=== PATIENT | male | born 1960 | race Caucasian/White ===

== ENCOUNTER 2019-01-04 08:32 | Day surgery (SDC) | payer BC, OTHER ==
[~2019-01-04] VITALS: Ht 177.8 cm; Wt 77.1 kg
[2019-01-04] MEDS ORDERED: MIDAZOLAM 1 MG/ML 2 ML INJ ONE (09:13)
[2019-01-04] MEDS ORDERED: LIDOCAINE 2% (SDV) 5 ML INJ ONE (09:13)
[2019-01-04] MEDS ORDERED: FENTAnyl 50 MCG/ML VIAL ONE (09:13)
[2019-01-04] MEDS ORDERED: PROPOFOL 20 ML ONE (09:13)
--- NOTE | 2019-01-04 09:13 | PREAC ---
Date/Time of Note Date/Time of Note DATE: 01/04/19 TIME: 09:12 Anesthesia Eval and Record Evaluation Time Pre-Procedure Interview DATE: 01/04/19 TIME: 09:12 Age 58 Sex male NPO: 8 hrs Preoperative diagnosis colon polyps Planned procedure colonoscopy Past Medical History Past Medical History: Includes Neuro: Other (back pain) Surgery & Anesthesia Issues No known issue Meds Anticoagulation: No Beta Jamal within 24 hr: No Reason Beta Jamal not given: Pt. not on B-Jamal Meds reviewed: Yes Allergies Allergies Reviewed: Yes Labs/Studies Labs Reviewed: Reviewed by anesthesiologist test: N/A Pre-procedure Exam Airway: Adequate mouth opening, Adequate thyromental dist Mallampati: Mallampati IV Teeth: Normal Lung: Normal Heart: Normal ASA Physical Status ASA physical status: 2 Emergency: None Pre-operative Attestations Prior to commencing anesthesia and surgery, the patient was re-evaluated, there was verification of: *The patient's identity *The results of appropriate recent lab work and preoperative vital signs *The above evaluation not changing prior to induction *Anesthetic plan, risk benefits, alternative and complications discussed with patient/family; questions answered; patient/family understands, accepts and wishes to proceed. LEONARD PENN DO Jan 04, 2019 09:13
[2019-01-04 09:18] VITALS: Ht 177.8 cm; Wt 77.1 kg
[2019-01-04] MEDS ORDERED: PROPECIA PO (09:24)
[2019-01-04] MEDS ORDERED: ACYCLOVIR PO (09:24)
[2019-01-04 09:31] VITALS: BP 136/82; PULSE 58; RESP 18
[2019-01-04 10:27] VITALS: BP 98/69; RESP 14
--- NOTE | 2019-01-04 11:03 | PAC ---
Date/Time of Note Date/Time of Note DATE: 01/04/19 TIME: 11:02 Post-Anesthesia Notes Post-Anesthesia Note Last documented vital signs 120/82 65 100% 18 98 Activity: WNL Respiratory function: WNL Cardiovascular function: WNL Mental status: Baseline Pain reasonably controlled: Yes Hydration appropriate: Yes Nausea/Vomiting absent: Yes LEONARD PENN DO Jan 04, 2019 11:03
== END 2019-01-04 15:40 | disposition home or self-care (01) ==
LOC: GIL 08:32
PROVIDERS: ATTEND Internal Medicine Gastroenterology
DX: Z12.11 Encounter for screening for malignant neoplasm of colon (principal); K64.8 Other hemorrhoids
CPT/HCPCS: 45378; J2250; J3010; Z7610